=== PATIENT | male | born 1950 | race Caucasian/White ===

== ENCOUNTER → 2018-01-06 11:19 | Outpatient (CLI) | payer BC, SELFPAY ==
--- NOTE | 2018-01-06 11:24 | XR_ITS ---
XR chest 2V HISTORY: Smoker, hypertension ITS.REASON: HTN ORDERING PHYSICIAN: Jan Valladares MD PATIENT AGE: 67 years COMPARISON: None FINDINGS: The cardiomediastinal silhouette and pulmonary vascularity are within normal limits. The lungs are clear without infiltrates, suspicious nodules, or pleural effusions. No acute bony abnormalities. IMPRESSION: Negative chest, no acute finding
== END ==
PROVIDERS: PCP Family Medicine; Visit Provider Family Medicine
DX: Z01.818 Encounter for other preprocedural examination (principal); M25.561 Pain in right knee
CPT/HCPCS: 71046; 93005

== ENCOUNTER → 2019-03-05 11:44 | Outpatient (CLI) | payer BC, SELFPAY ==
--- NOTE | 2019-03-05 | ECG_ITS ---
APPROVED REPORT Exam: Resting ECG HR:78 bpm ECG Measurements Heart Rate 78 AXES FL 196 P 51 QRSd 136 QRS 46 QT 422 T 33 QTc 481 <Conclusion> Normal sinus rhythm Possible Left atrial enlargement Right bundle branch block Abnormal ECG Electronically signed by : Jayden Eddy, 03/05/2019 17:38:46
--- NOTE | 2019-03-05 11:51 | XR_ITS ---
PROCEDURE: XR CHEST 2V CLINICAL HISTORY: HTN,CURRENT TOBACCO USE COMPARISON: CXR2V XR chest 2V from 01/06/2018 FINDINGS: The cardiomediastinal silhouette and pulmonary vascularity are within normal limits. The lungs are clear without infiltrates, suspicious nodules, or pleural effusions. No acute bony abnormalities. IMPRESSION: No acute findings. Dictated by: Dr. Regino Harper MD 03/05/2019 12:30 Signed by: <Electronically signed by Dr. Regino Harper MD in [place]> 03/05/2019 12:30
== END ==
PROVIDERS: PCP Family Medicine; Visit Provider Family Medicine
DX: Z01.818 Encounter for other preprocedural examination (principal)
CPT/HCPCS: 71046; 93005